=== PATIENT | female | born 1990 | race Two or more races ===

== ENCOUNTER 2017-01-28 18:30 | Emergency (ER) | payer MEDICAID ==
[~2017-01-28 18:30] MED LIST: PREN1CAP7 PO
--- NOTE | 2017-01-28 19:02 | PD ---
HPI Date Seen: Jan 28, 2017 Time Seen: 18:59 (Payton Patterson MD R2) Travel History International Travel<30 Days: No (Did not ask) Contact w/Intl Traveler<30Days: No (Did not ask) (Payton Patterson MD R2) History of Present Illness HPI History done through online certified japanese interpreter Patient is a 26-year-old female AB 1 at 38/5 who presented today for vaginal bleeding. has been complicated by gestations diabetes that is diet controlled. Patient first noticed a pink discharge today. Discharge initially started out as white yesterday and then became pink today. Did not soak through her underwear. Denies recent sexual activity. She does provide picture which shows a more brown discharge. Denies pruritus, hematuria, dysuria. Endorses movement. Denies contractions but does endorse periodic cramps that come and go. (Payton Patterson MD R2) History Past Medical History Medical History: Denies Significant Hx (Payton Patterson MD R2) Obstetric History Obstetric History 3 vaginal deliveries. History of hemorrhage (Payton Patterson MD R2) Past Surgical History Surgical History: No Previous Surgery (Payton Patterson MD R2) Family History Family History: Negative (Payton Patterson MD R2) Social History Alcohol Use: No Tobacco Use: No Substance Abuse: No (Payton Patterson MD R2) Allergies-Medications (Allergen,Severity, Reaction): Coded Allergies: No Known Allergies (Unverified , 01/20/17) Home Meds Active Scripts W/O Vit A W/ Fe Fumar (Citranatal [place])27-1-260 Mg Cap1 Cap PO DAILY #90 CAP Ref 0 Prov:Ravindra Drake MD R1 01/13/17 Review of Systems Except as stated in HPI: all other systems reviewed are Neg (Payton Patterson MD R2) Physical Exam Narrative GENERAL: Well-nourished, well-developed patient. SKIN: Warm and dry. HEAD: Normocephalic and atraumatic. EYES: No scleral icterus. No injection or drainage. ENT: No nasal drainage noted. Mucous membranes pink. Airway patent. CARDIOVASCULAR: Regular rate and rhythm without murmurs, gallops, or rubs. RESPIRATORY: Breath sounds equal bilaterally. No accessory muscle use. ABDOMEN/GI: Abdomen soft, non-tender, no rebound, no guarding Gravid to 38 weeks size GENITOURINARY: External Genitalia: intact and normal in appearance. White curd like discharge without evidence of bleeding. No lesion/lacerations seen. Cervix: posterior Dilatation: 0-1 Effacement: 20 Station: -3 Membranes: intact, amnisure negative Uterine Contractions: intermittent FHT's: Category: 1 Baseline: 130 Reactive: accels present Variability: moderate Decels: none EXTREMITIES: No cyanosis. 2+ pitting edema bilaterally NEUROLOGICAL: Awake and alert. Motor and sensory grossly within normal limits. Normal speech. (Payton Patterson MD R2) MDM Medical Record Reviewed: Yes Interpretation(s) 26yo female [id number] at 38.5 Presented for vaginal bleeding. 1. IUP * Category 1 tracing reassuring * Amnisure negative * Speculum and pelvic exam negative for blood. Cervix is closed thick and high. * Etiology of vaginal bleeding may be due to superficial lesion as patient is otherwise asymptomatic and denies any recent sexual activity * US 12/25/16: cephalic presentation. Anterior placenta. Amniotic fluid WNL. Mild pyelocaliectasis within the right kidney. abdominal US recommended. * Not in active labor 2. GBS status unknown * Per discussion with PCP, I believe GBS has been drawn. Discharge home in stable condition. Keep follow up appt with Dr. Drake on dw Dr. Villar (Payton Patterson MD R2) Narrative Course / MDM Patient was seen with the resident at the bedside. Agree with evaluation and plan. Labor precatuions. [facility] daily. FHR reviewed. (Alejandra Villar MD) Diagnosis Diagnosis: Primary Impression: Third trimester Disposition: DISCHARGE HOME Condition: Stable Payton Patterson MD R2 Jan 28, 2017 19:02 Alejandra Villar MD Jan 30, 2017 10:33
== END 2017-01-28 21:06 | disposition home or self-care (01) ==
LOC: HOBED 18:30
DX: O46.93 Antepartum hemorrhage, unspecified, third trimester (principal); O24.410 Gestational diabetes mellitus in pregnancy, diet controlled; Z3A.38 38 weeks gestation of pregnancy
CPT/HCPCS: 59025; 82948; 84112

== ENCOUNTER 2017-01-30 23:09 | Inpatient (IN) | payer MEDICAID ==
[~2017-01-30] VITALS: Ht 160 cm; Wt 105.2 kg
[2017-01-31] VITALS (19 sets, daily range): BP systolic 128–152; BP diastolic 72–90; PULSE 48–82; RESP 16–22; TEMP 99.1
[2017-01-31] MEDS ORDERED: LACTATED RINGER'S 1000 ML INJ 1,000 ML IV PRN (00:19)
[2017-01-31] MEDS ORDERED: LACTATED RINGER'S 1000 ML INJ 1,000 ML IV SCH (00:19)
--- NOTE | 2017-01-31 00:20 | PD ---
HPI Chief Complaint Pain, contractions Date Seen: Jan 31, 2017 Time Seen: 23:45 Travel History International Travel<30 Days: No Contact w/Intl Traveler<30Days: No Known Affected Area: No History of Present Illness HPI Patient is a 26-year-old G5. 3 at 39 weeks and 0 days who presents with abdominal pain consistent with contractions and back pain. She says this pain started today at 8 AM. She had a little bit of pink fluid vaginal discharge, but denied any significant leakage of fluids, vaginal bleeding. Patient endorses movement. She reports that at first her contractions were every 5 -8 minutes, and then more recently became as frequent as every 3-5 minutes. Patient reports that her back pain is constant, she describes it as an 8-9 out of 10. Patient has a history of gestational diabetes with this , which is diet controlled without medication. Para: 3 : 5 History Past Medical History Narrative Medical Patient reports a history of gestational diabetes with this , but not prior to this . Patient reports that she is diet controlled and not on any medication. Obstetric History Obstetric History Patient reports 3 full term deliveries without complications. Past Surgical History Narrative Surgical Patient denies any previous surgeries Surgical History: No Previous Surgery Family History Family History: Negative Social History Tobacco Use: No Allergies-Medications (Allergen,Severity, Reaction): Coded Allergies: No Known Allergies (Unverified , 01/31/17) Home Meds Active Scripts W/O Vit A W/ Fe Fumar (Citranatal [place])27-1-260 Mg Cap1 Cap PO DAILY #90 CAP Ref 0 Prov:Ravindra Drake MD R1 01/13/17 Physical Exam Narrative GENERAL: Well-nourished, well-developed patient. SKIN: Warm and dry. HEAD: Normocephalic and atraumatic. EYES: No scleral icterus. No injection or drainage. ENT: No nasal drainage noted. Mucous membranes pink. Airway patent. NECK: Supple, trachea midline. No JVD. CARDIOVASCULAR: Regular rate and rhythm without murmurs, gallops, or rubs. RESPIRATORY: Breath sounds equal bilaterally. No accessory muscle use. BREASTS: Bilateral exam showed no masses , no retractions, no nipple discharge. ABDOMEN/GI: Abdomen soft, non-tender, bowel sounds present, no rebound, no guarding Gravid to 39 weeks size Fundal Height: 39 GENITOURINARY: External Genitalia: intact and normal in appearance Dilatation: 3-4 cm Effacement: 50% Station: -2 Presentation: Vertex Membranes: Intact Uterine Contractions: Every 2-3 minutes FHT's: Category: Category 1 Baseline: 135 bpm Reactive: Reactive Variability: Moderate variability Decels: No decelerations noted EXTREMITIES: No cyanosis or edema. BACK: Nontender without obvious deformity. No CVA tenderness. NEUROLOGICAL: Awake and alert. Motor and sensory grossly within normal limits. Five out of 5 muscle strength in all muscle groups. Normal speech. Data Data Vital Signs Reviewed: Yes Orders Vital Signs (Adult) .ON ADMISSION (01/30/17 23:55) ^ Labor Status (01/30/17 23:55) Urinalysis - C+S If Indicated (01/30/17 23:55) ^ Non Stress Test (01/30/17 23:55) ^ Hydration (01/30/17 23:55) Pamg-1 Test .ONCE (01/30/17 23:55) [facility] Medical Record Reviewed: Yes Plan Patient is a 26-year-old at 39 weeks and 0 days gestation who presents with abdominal pain and contractions since today at 8 AM that seemed to becoming increasingly frequent. 1) rule out labor Monitor vital signs Encourage hydration Monitor heart rate (With Nonstress test Monitor contractions with tocometry Serial vaginal/cervical exams UA 2) back pain Treat pain as tolerated 3) gestational diabetes; patient is diet controlled and not on any medication Continue to monitor Philip Heard MD R1 Jan 31, 2017 00:20
[2017-01-31] MEDS ORDERED: MINERAL OIL 10 ML VIAL TOPICAL PRN (00:30)
[2017-01-31] MEDS ORDERED: OXYTOCIN 30 UNITS-500ML PREMIX 500 ML IV ONE (00:30)
[2017-01-31] MEDS ORDERED: SODIUM CHLORID 0.9% 500 ML INJ 500 ML IV PRN (00:30)
[2017-01-31] MEDS ORDERED: LIDOCAINE HCL 1% 50 ML VIAL I-DERMAL PRN (00:30)
[2017-01-31] MEDS ORDERED: ONDANSETRON HCL 4 MG/2 ML VIAL IV PRN (00:30)
[2017-01-31] MEDS ORDERED: CITRIC ACID-SODIUM CITRATE LIQ 30 ML UDC PO SCH (00:30)
[2017-01-31] MEDS ORDERED: LIDOCAINE HCL 1% 50 ML VIAL INFIL PRN (00:30)
[2017-01-31] MEDS ORDERED: SODIUM CHLOR 0.9% 1000 ML INJ 1,000 ML IV PRN (00:39)
[2017-01-31 00:57] LABS: AUTOMATED NEUTROPHIL # 5.5 TH/MM3 (1.8-7.7); BASOPHIL % 0.3 % (0.0-2.0); EOSINOPHIL # 0.1 TH/MM3 (0-0.4); HEMATOCRIT 38.3 % (35.0-46.0); HEMO FLAGS DIFF FINAL; LYMPH % 37.7 % (9.0-44.0); LYMPHOCYTE # 3.7 TH/MM3 (1.0-4.8); MEAN CELL VOLUME 78.3 FL (80.0-100.0); MEAN CORPUSCULAR HEMOGLOBIN 26.4 PG (27.0-34.0); MEAN CORPUSCULAR HGB CONC 33.8 % (32.0-36.0); MONO % 4.6 % (0.0-8.0); NEUT % 56.4 % (16.0-70.0); PLATELET COUNT 149 TH/MM3 (150-450); RED BLOOD COUNT 4.89 MIL/MM3 (4.00-5.30); RED CELL DISTRIBUTION WIDTH 15.4 % (11.6-17.2); WHITE BLOOD COUNT 9.7 TH/MM3 (4.0-11.0)
[2017-01-31] MEDS ORDERED: MISOPROSTOL 200 MCG TAB ONE (01:04)
[2017-01-31 01:10] LABS: BACTERIA, URINE RARE /hpf; BLOOD, URINE NEG (NEG); GLUCOSE,URINE NEG (NEG); KETONE, URINE NEG (NEG); MUCUS URINE FEW /lpf (OCC); NITRITE,URINE NEG (NEG); PH, URINE 5.5 (5.0-8.5); RENAL EPITHELIAL CELLS <1 /hpf; SQUAMOUS EPITHELIAL CELL URINE 1 /hpf (0-5); URINE COLOR LIGHT-YELLOW (YELLW/STRAW)
[2017-01-31 01:12] LABS: COMMENT (UR) CULT NOT INDICATED; CULTURE IF INDICATED CULT NOT INDICATED
--- NOTE | 2017-01-31 01:13 | PD.LABORPN ---
Subjective Subjective [facility] Attending Note 26y/o DM presented in active labor and progressed rapidly during evaluation with SROM in [place]. She is an A1DM without recent US assessment. She has a h/o large neonates, denies h/o shoulder dystocia. She was emphatic in her desire for a . We discussed via physician software sales the risks of shoulder dystocia including but not limited to permanent and irreversible neurological injury and/or brain damage. We discussed that the only way to prevent these risks is to perform a delivery at this time. We discussed there is an increased risk due to the suspected large size and her diabetes, which she did not have in any of the prior pregnancies. The patient expressed understanding of the risks including permanent and irreversible neurologic injury but declines a delivery and wants to proceed with a vaginal delivery, despite the risks above. Alejandra Villar MD Jan 31, 2017 01:13 Dilatation: [-] Effacement: [-] Station: [-] Presentation: [-] Membranes: [intact or ruptured] Uterine Contractions: [-] FHT's: Category: [-] Baseline: [-] Reactive: [-] Variability: [-] Decels: [-] Alejandra Villar MD Jan 31, 2017 01:13
--- NOTE | 2017-01-31 01:30 | HHI.HP ---
History & Physical H&P HPI HPI Chief Complaint Pain, contractions Date Seen: Jan 31, 2017 Time Seen: 23:45 Travel History International Travel<30 Days: No Contact w/Intl Traveler<30Days: No Known Affected Area: No History of Present Illness HPI Patient is a 26-year-old G5. 3 at 39 weeks and 0 days who presents with abdominal pain consistent with contractions and back pain. She says this pain started today at 8 AM. She had a little bit of pink fluid vaginal discharge, but denied any significant leakage of fluids, vaginal bleeding. Patient endorses movement. She reports that at first her contractions were every 5 -8 minutes, and then more recently became as frequent as every 3-5 minutes. Patient reports that her back pain is constant, she describes it as an 8-9 out of 10. Patient has a history of gestational diabetes with this , which is diet controlled without medication. Para: 3 : 5 Update: Pt with SROM and cervical dilation to 7cm within an hour of last exam. History (Limited) History Past Medical History Narrative Medical Patient reports a history of gestational diabetes with this , but not prior to this . Patient reports that she is diet controlled and not on any medication. Obstetric History Obstetric History Patient reports 3 full term deliveries without complications. Past Surgical History Narrative Surgical Patient denies any previous surgeries Surgical History: No Previous Surgery Family History Family History: Negative Social History Tobacco Use: No Allergies-Medications Allergies-Medications (Allergen,Severity, Reaction): Coded Allergies: No Known Allergies (Unverified , 01/31/17) Home Meds Active Scripts W/O Vit A W/ Fe Fumar (Citranatal [place])27-1-260 Mg Cap1 Cap PO DAILY #90 CAP Ref 0 Prov:Ravindra Drake MD R1 01/13/17 ROS Review of Systems Physical Exam Physical Exam Narrative GENERAL: Well-nourished, well-developed patient. SKIN: Warm and dry. HEAD: Normocephalic and atraumatic. EYES: No scleral icterus. No injection or drainage. ENT: No nasal drainage noted. Mucous membranes pink. Airway patent. NECK: Supple, trachea midline. No JVD. CARDIOVASCULAR: Regular rate and rhythm without murmurs, gallops, or rubs. RESPIRATORY: Breath sounds equal bilaterally. No accessory muscle use. BREASTS: Bilateral exam showed no masses , no retractions, no nipple discharge. ABDOMEN/GI: Abdomen soft, non-tender, bowel sounds present, no rebound, no guarding Gravid to 39 weeks size Fundal Height: 39 GENITOURINARY: (per nurse report) External Genitalia: intact and normal in appearance Dilatation: 7 cm Effacement: 50% Station: -2 Presentation: Vertex Membranes: Intact Uterine Contractions: Every 2-3 minutes FHT's: Category: Category 1 Baseline: 135 bpm Reactive: Reactive Variability: Moderate variability Decels: No decelerations noted EXTREMITIES: No cyanosis or edema. BACK: Nontender without obvious deformity. No CVA tenderness. NEUROLOGICAL: Awake and alert. Motor and sensory grossly within normal limits. Five out of 5 muscle strength in all muscle groups. Normal speech. Data Data Data Vital Signs Reviewed: Yes Orders Vital Signs (Adult) .ON ADMISSION (01/30/17 23:55) ^ Labor Status (01/30/17 23:55) Urinalysis - C+S If Indicated (01/30/17 23:55) ^ Non Stress Test (01/30/17 23:55) ^ Hydration (01/30/17 23:55) Pamg-1 Test .ONCE (01/30/17 23:55) MDM MDM Medical Record Reviewed: Yes Plan Patient is a 26-year-old at 39 weeks and 0 days gestation who presents with abdominal pain and contractions since today at 8 AM that seemed to becoming increasingly frequent. 1) pt in active labor Monitor vital signs Monitor heart rate with Nonstress test Monitor contractions with tocometry Serial vaginal/cervical exams UA --pt declines epidural and . Risks of shoulder dystocia and permanent/ irreversible neurological damage were discussed with patient because of likely LGA baby. Pt voiced understanding of the risks and wished to continue with vaginal delivery. --Fentanyl for pain --IVF with LR --NPO 2) back pain Treat pain with fentanyl as tolerated 3) gestational diabetes; patient is diet controlled and not on any medication Continue to monitor blood glucose 4) GBS unknown --no need for abx at this time given her 39 weeks gestational age and lack of risk factors. --continue to monitor for clinical signs and/or symptoms of infection Pt seen and discussed with Dr. Mcleod, Philip Lozano MD R1 Jan 31, 2017 01:30
[2017-01-31] MEDS ORDERED: METHYLERGONOVINE MALEATE 0.2 MG/ML VIAL ONE ×2 (01:43→02:21)
[2017-01-31] MEDS ORDERED: SODIUM CHLORIDE 0.9% FLUSH 10 ML FLUSH IV FLUSH PRN (02:00)
[2017-01-31] MEDS ORDERED: BENZOCAINE 20% TOPICAL SPRAY 60 ML CAN TOPICAL PRN (02:00)
[2017-01-31] MEDS ORDERED: oxyCODONE/ACETAMINOPHEN 5 MG/325 MG TAB PO PRN (02:00)
[2017-01-31] MEDS ORDERED: ZOLPIDEM TARTRATE 5 MG TAB PO PRN (02:00)
[2017-01-31] MEDS ORDERED: ONDANSETRON ODT 4 MG TAB PO PRN (02:00)
[2017-01-31] MEDS ORDERED: ACETAMINOPHEN 325 MG TAB PO PRN (02:00)
[2017-01-31] MEDS ORDERED: SODIUM CHLORIDE 0.9% FLUSH 10 ML FLUSH IV FLUSH SCH (02:00)
[2017-01-31] MEDS ORDERED: ALUMINUM/MAGNESIUM/SIMETH 30 ML CUP PO PRN (02:00)
[2017-01-31] MEDS ORDERED: WITCH HAZEL 50%/GLYCERIN 12.5% 40 PAD JAR TOPICAL PRN (02:00)
[2017-01-31] MEDS: oxyCODONE/ACETAMINOPHEN 5 MG/325 MG TAB PO PRN ×5 (02:07→21:05)
[2017-01-31] MEDS: IBUPROFEN 600 MG TAB PO PRN ×4 (02:07→21:05)
--- NOTE | 2017-01-31 02:07 | PD.OB.DELI ---
Delivery Date: Jan 31, 2017 Anesthesia: None Episiotomy: None Vaginal Delivery: Normal Presentation: Occiput anterior Nuchal Cord: None Delayed cord clamping (45 sec): Yes : Female One Minute : 7 Five Minute : 8 Ten Minute : 9 Weight: 4565 g Infant Care: Suctioned, Spontaneous crying (vigorous infant on delivery), Responded to stimulation Placenta: Spontaneous delivery Laceration: No lacerations Additional Information Delivered by Dr. Drake Supervised by Dr. Villar and Ravindra Clemons MD R1 Jan 31, 2017 02:07
--- NOTE | 2017-01-31 02:33 | PD.LABORPN ---
Subjective Subjective Attending Delivery Note Patient rapidly progressed to C/C/+1 and commenced spontaneous maternal expulsive efforts with rapid descent. The head delivered spontaneously and atraumatically with spontaneous and atraumatic delivery of the anterior shoulder. The remainder of the delivered spontaneously and the was crying and vigorous at delivery and noted to be crying vigorously shortly after delivery. The was moving all extremities well. The cord was double clamped and cut; the was taken to the warmer. The placenta was removed spontaneously and noted to be intact, no lacerations were noted. No or maternal injuries were noted. I performed the primary and all zepeda portions of the delivery. Objective Vital Signs Vital Signs Date Time Temp Pulse Resp B/P Pulse Ox O2 Delivery O2 Flow Rate FiO2 01/31/17 02:13 18 01/31/17 02:01 56 144/85 01/31/17 01:56 62 16 142/82 01/31/17 01:50 18 01/31/17 01:09 18 01/31/17 01:02 82 128/82 Alejandra Villar MD Jan 31, 2017 02:33
[2017-01-31] MEDS ORDERED: MEASLES, MUMPS, RUBELLA VACCINE 0.5 ML VIAL SQ ONE (16:00)
[2017-01-31] MEDS ORDERED: DIPHTH/TETANUS/ACEL PERTUSSIS (BOOSTER) 0.5 ML VIAL/PFS IM ONE (16:00)
--- NOTE | 2017-01-31 17:45 | HHI.OB ---
Subjective Post Day: 0 Remarks 26 year old female s/p NVD at 39/1 wks gestation, PPD 1. AFVSS. Patient reports she is feeling well. Bleeding is decreasing and pain is well- controlled. She is breast + formula feeding and bonding well with baby. Ambulating without difficulties. She is tolerating a diet without nausea or vomiting. She has not had a bowel movement. She has passed gas. Denies chest pain, dysuria, shortness of breath, or calf pain. (Ravindra Drake MD R1) Objective Vitals/I&O Vital Signs Date Time Temp Pulse Resp B/P Pulse Ox O2 Delivery O2 Flow Rate FiO2 01/31/17 04:30 99.1 52 22 130/74 01/31/17 04:01 49 142/81 01/31/17 04:00 18 01/31/17 03:46 52 150/81 01/31/17 03:30 18 01/31/17 03:17 48 150/74 01/31/17 03:15 53 01/31/17 03:15 18 01/31/17 03:11 18 01/31/17 03:11 18 01/31/17 03:01 51 152/72 01/31/17 03:00 18 01/31/17 02:45 18 01/31/17 02:45 57 151/90 01/31/17 02:31 58 138/83 01/31/17 02:30 18 01/31/17 02:16 55 142/73 01/31/17 02:13 18 01/31/17 02:01 56 144/85 01/31/17 01:56 62 16 142/82 01/31/17 01:50 18 01/31/17 01:09 18 01/31/17 01:02 82 128/82 Objective Remarks GENERAL: Well-nourished, well-developed patient. CARDIOVASCULAR: Regular rate and rhythm without murmurs, gallops, or rubs. RESPIRATORY: Breath sounds equal bilaterally. No accessory muscle use. ABDOMEN/GI: Abdomen soft, non-tender. Fundus: Firm, mildly tender at umbilicus GENITOURINARY: Light to moderate bleeding. EXTREMITIES: No cyanosis or edema, non-tender, without signs of DVT. Medications and IVs Current Medications Medications (Trade) Dose Ordered Sig/Serena Route Start Time Stop Time Status Last Admin Lactated Ringer's 1,000 ml @ 3,000 mls/hr Q20M PRN IV 01/31/17 00:19 Sodium Chloride 500 ml @ 1,000 mls/hr ONCE PRN IV 01/31/17 00:30 02/01/17 00:29 (NS 1000 ml Inj) 1,000 ml @ 100 mls/hr Q10H PRN IV 01/31/17 00:39 (Zofran Inj) 4 mg Q6H PRN IV 01/31/17 00:30 (NS Flush) 2 ml BID IV FLUSH 01/31/17 02:00 (NS Flush) 2 ml UNSCH PRN IV FLUSH 01/31/17 02:00 (Tylenol) 650 mg Q4H PRN PO 01/31/17 02:00 (Motrin) 600 mg Q6H PRN PO 01/31/17 02:00 01/31/17 14:52 (Percocet 5-325 Mg) 1 tab Q4H PRN PO 01/31/17 02:00 01/31/17 14:53 (Percocet 5-325 Mg) 2 tab Q4H PRN PO 01/31/17 02:00 (Americaine 20% Top Spr) 1 spray Q4H PRN TOPICAL 01/31/17 02:00 (Tucks Pads) 1 applic QID PRN TOPICAL 01/31/17 02:00 (Yamilet-Colace) 2 tab Q12H PRN PO 01/31/17 02:00 (Ambien) 5 mg HS PRN PO 01/31/17 02:00 (Mag-Al Plus Susp Liq) 15 ml Q8H PRN PO 01/31/17 02:00 (Zofran Odt) 4 mg Q6H PRN PO 01/31/17 02:00 (Ravindra Drake MD R1) Assessment/Plan Problem List: (1) Normal vaginal delivery (2) GDM (gestational diabetes mellitus) Assessment and Plan 26 yo female s/p NVD PPD 0. - AFVSS - Continue routine care - Motrin PRN pain - Encourage OOB - Pelvic rest x 6 wks - Contraception: undecided at this time, wdw PCP Dr. Drake - Anticipate D/C 02/02 wdw OB Hospitalist Discharge Planning Home 02/01-02/02 (Ravindra Drake MD R1) Attending Attestation Agree with resident assessment. Follow Bps. (Elsa Amezcua MD) Ravindra Drake MD R1 Jan 31, 2017 17:45 Elsa Amezcua MD Feb 01, 2017 09:28
[2017-01-31] MEDS: DOCUSATE SODIUM 50 MG/SENNA 8.6 MG TAB PO PRN (20:58)
[2017-02-01] MEDS: IBUPROFEN 600 MG TAB PO PRN ×3 (06:10→17:57)
[2017-02-01] MEDS: oxyCODONE/ACETAMINOPHEN 5 MG/325 MG TAB PO PRN ×3 (06:10→17:57)
[2017-02-01 07:45] VITALS: BP 119/73; PULSE 57; RESP 16; TEMP 98.3
--- NOTE | 2017-02-01 08:25 | HHI.OB ---
Subjective Post Day: 1 Remarks 26 year old female s/p NVD at 39/1 wks gestation, PPD 1. Some elevated BPs overnight, most recent two wnl. Patient reports she is feeling well. Bleeding is decreasing and pain is well-controlled. She is breast + formula feeding and bonding well with baby. Ambulating without difficulties. She is tolerating a diet without nausea or vomiting. She has not had a bowel movement. She has passed gas. Denies chest pain, dysuria, shortness of breath, or calf pain. ( Ravindra Drake MD R1) Objective Objective Remarks GENERAL: Well-nourished, well-developed patient lying in bed in NAD. CARDIOVASCULAR: Regular rate and rhythm without murmurs, gallops, or rubs. RESPIRATORY: Breath sounds equal bilaterally. No accessory muscle use. ABDOMEN/GI: Abdomen soft, non-tender. Fundus: Firm, mildly tender at umbilicus GENITOURINARY: Light to moderate bleeding. EXTREMITIES: No cyanosis or edema, non-tender, without signs of DVT. Medications and IVs Current Medications Medications (Trade) Dose Ordered Sig/Serena Route Start Time Stop Time Status Last Admin Lactated Ringer's 1,000 ml @ 3,000 mls/hr Q20M PRN IV 01/31/17 00:19 (NS 1000 ml Inj) 1,000 ml @ 100 mls/hr Q10H PRN IV 01/31/17 00:39 (Zofran Inj) 4 mg Q6H PRN IV 01/31/17 00:30 (NS Flush) 2 ml BID IV FLUSH 01/31/17 02:00 (NS Flush) 2 ml UNSCH PRN IV FLUSH 01/31/17 02:00 (Tylenol) 650 mg Q4H PRN PO 01/31/17 02:00 (Motrin) 600 mg Q6H PRN PO 01/31/17 02:00 02/01/17 06:10 (Percocet 5-325 Mg) 1 tab Q4H PRN PO 01/31/17 02:00 02/01/17 06:10 (Percocet 5-325 Mg) 2 tab Q4H PRN PO 01/31/17 02:00 (Americaine 20% Top Spr) 1 spray Q4H PRN TOPICAL 01/31/17 02:00 (Tucks Pads) 1 applic QID PRN TOPICAL 01/31/17 02:00 (Yamilet-Colace) 2 tab Q12H PRN PO 01/31/17 02:00 01/31/17 20:58 (Ambien) 5 mg HS PRN PO 01/31/17 02:00 (Mag-Al Plus Susp Liq) 15 ml Q8H PRN PO 01/31/17 02:00 (Zofran Odt) 4 mg Q6H PRN PO 01/31/17 02:00 (Ravindra Drake MD R1) Assessment/Plan Problem List: (1) Normal vaginal delivery (2) GDM (gestational diabetes mellitus) Assessment and Plan 26 yo female s/p NVD PPD 1. - Keep eye on BP, slightly elevated intrapartum and after delivery, normal now, no signs/Sx of pre-eclampsia - Continue routine care - Motrin and Percocet PRN pain - Encourage OOB - Pelvic rest x 6 wks - Contraception: undecided at this time, wdw PCP Dr. Drake - Anticipate D/C 02/02 wdw OB Hospitalist Discharge Planning Home 02/02 (Ravindra Drake MD R1) Attending Attestation Agree with resident note. continue to monitor Bps as labile. d/c home tomorrow. (Elsa Amezcua MD) Ravindra Drake MD R1 Feb 01, 2017 08:24 Elsa Amezcua MD Feb 01, 2017 09:29
[2017-02-01] MEDS: DOCUSATE SODIUM 50 MG/SENNA 8.6 MG TAB PO PRN (12:15)
[2017-02-01 21:30] VITALS: BP 110/71; PULSE 63; RESP 18; TEMP 97.5
[2017-02-02] MEDS ORDERED: IBUP-232 PO (07:07)
[2017-02-02] MEDS ORDERED: OXYC1TAB63 PO (07:07)
--- NOTE | 2017-02-02 07:08 | HHI.DCPOC ---
Discharge Care Plan Diagnosis: (1) Normal vaginal delivery (2) GDM (gestational diabetes mellitus) Report Symptoms to Your Doctor -Temperate above 100.5 degrees -Redness, of incision or excessive or foul smelling drainage -Unusual pain or calf pain -Increased vaginal bleeding -Painful or difficulty urinating -Feelings of extreme sadness or anxiety after 2 weeks Goals to Promote Your Health * To prevent worsening of your condition and complications * To maintain your health at the optimal level Directions to Meet Your Goals Take your medications as prescribed Follow your dietary instruction Follow activity as directed Ensure plenty of rest for recovery Drink fluids for hydration Keep your appointments as scheduled Take your immunizations and boosters as scheduled If your symptoms worsen call your PCP, if no PCP go to Urgent Care Center or Emergency Room Smoking is Dangerous to Your Health. Avoid second hand smoke Call the 24-hour crisis hotline for domestic abuse at Ravindra Drake MD R1 Feb 02, 2017 07:08
[2017-02-02] MEDS: oxyCODONE/ACETAMINOPHEN 5 MG/325 MG TAB PO PRN (07:32)
[2017-02-02] MEDS: IBUPROFEN 600 MG TAB PO PRN (07:33)
[2017-02-02 08:00] VITALS: BP 108/72; PULSE 72; RESP 18; TEMP 98.2
[2017-02-02] MEDS ORDERED: SENN8.6T81 PO (08:14)
--- NOTE | 2017-02-02 08:31 | HHI.OB ---
Subjective Post Day: 2 Remarks 26 year old female s/p NVD at 39/1 wks gestation, PPD 2. AFVSS. Patient reports she is feeling well. Bleeding is decreasing and pain is well- controlled. She is formula feeding and bonding well with baby. Ambulating without difficulties. She is tolerating a diet without nausea or vomiting. She has not had a bowel movement. She has passed gas. Denies chest pain, dysuria, shortness of breath, or calf pain. (Ravindra Drake MD R1) Objective Vitals/I&O Vital Signs Date Time Temp Pulse Resp B/P Pulse Ox O2 Delivery O2 Flow Rate FiO2 02/02/17 08:00 98.2 72 18 02/02/17 08:00 108/72 02/01/17 21:30 63 18 110/71 02/01/17 21:30 97.5 Objective Remarks GENERAL: Well-nourished, well-developed patient lying in bed in NAD. CARDIOVASCULAR: Regular rate and rhythm without murmurs, gallops, or rubs. RESPIRATORY: Breath sounds equal bilaterally. No accessory muscle use. ABDOMEN/GI: Abdomen soft, non-tender. Fundus: Firm, minimally tender at umbilicus GENITOURINARY: Light to moderate bleeding. EXTREMITIES: No cyanosis or edema, non-tender, without signs of DVT. Medications and IVs Current Medications Medications (Trade) Dose Ordered Sig/Serena Route Start Time Stop Time Status Last Admin Lactated Ringer's 1,000 ml @ 3,000 mls/hr Q20M PRN IV 01/31/17 00:19 (NS 1000 ml Inj) 1,000 ml @ 100 mls/hr Q10H PRN IV 01/31/17 00:39 (Zofran Inj) 4 mg Q6H PRN IV 01/31/17 00:30 (NS Flush) 2 ml BID IV FLUSH 01/31/17 02:00 (NS Flush) 2 ml UNSCH PRN IV FLUSH 01/31/17 02:00 (Tylenol) 650 mg Q4H PRN PO 01/31/17 02:00 (Motrin) 600 mg Q6H PRN PO 01/31/17 02:00 02/02/17 07:33 (Percocet 5-325 Mg) 1 tab Q4H PRN PO 01/31/17 02:00 02/02/17 07:32 (Percocet 5-325 Mg) 2 tab Q4H PRN PO 01/31/17 02:00 (Americaine 20% Top Spr) 1 spray Q4H PRN TOPICAL 01/31/17 02:00 (Tucks Pads) 1 applic QID PRN TOPICAL 01/31/17 02:00 (Yamilet-Colace) 2 tab Q12H PRN PO 01/31/17 02:00 02/01/17 12:15 (Ambien) 5 mg HS PRN PO 01/31/17 02:00 (Mag-Al Plus Susp Liq) 15 ml Q8H PRN PO 01/31/17 02:00 (Zofran Odt) 4 mg Q6H PRN PO 01/31/17 02:00 (Ravindra Drake MD R1) Assessment/Plan Problem List: (1) Normal vaginal delivery (2) GDM (gestational diabetes mellitus) Assessment and Plan 26 yo female s/p NVD PPD 2. - BPs wnl today - D/C home today - Motrin and Percocet PRN pain - Encourage OOB - Pelvic rest x 6 wks - Contraception: desires Paraguard IUD, will obtain from [facility] PRN constipation dw OB Hospitalist Discharge Planning Home 02/02 (Ravindra Drake MD R1) Collaborating MD Comments Discharge plans are planned and patient will follow-up in the clinic for her 6 week exam (Demetrice Fuentes MD) Ravindra Drake MD R1 Feb 02, 2017 08:31 Demetrice Fuentes MD Feb 02, 2017 09:03
[2017-02-02 16:08] LABS: HEMOGLOBIN A1a 1.2 %; HEMOGLOBIN A1b 1.6 %; HEMOGLOBIN Ao 85.3 %; HEMOGLOBIN LA1C 1.7 %; HEMOGLOBIN P3 3.6 %
== END 2017-02-02 12:47 | disposition home or self-care (01) | DRG 775 ==
LOC: HOBED 23:09 → H2EA 01-31 00:17 → H1EA 01-31 04:14
PROVIDERS: ADMIT Obstetrics & Gynecology; ATTEND Obstetrics & Gynecology
PROC: 10E0XZZ Delivery of Products of Conception, External Approach (ICD-10-PCS; principal; 2017-01-31)
DX: O24.420 Gestational diabetes mellitus in childbirth, diet controlled (principal); O36.63X0 Maternal care for excessive fetal growth, third trimester, not applicable or unspecified; Z37.0 Single live birth; Z3A.39 39 weeks gestation of pregnancy
CPT/HCPCS: 59025; 81001; 83036; 84112; 85025; 86900; 86901; J2210; J2590; J3010; J7120

== ENCOUNTER 2018-01-18 19:51 | Emergency (ER) | payer MEDICAID ==
[~2018-01-18 19:51] MED LIST changes: +IBUP-232 PO; +OXYC1TAB63 PO; +SENN8.6T81 PO
[2018-01-18 20:09] VITALS: BP 154/67; PULSE 74; RESP 18; TEMP 98.6; O2SAT 99
--- NOTE | 2018-01-18 23:35 | PD ---
HPI Chief Complaint: Cold / Flu Symptoms Time Seen by Provider: 23:28 Travel History International Travel<30 days: No Contact w/Intl Traveler<30days: No Traveled to known affect area: No History of Present Illness HPI 27-year-old female presents to emergency department with a 9 day history of cough, congestion, green sputum, pleuritic chest wall pain, sore throat, and lower back pain with coughing. She denies any ear pain, nausea, vomiting, diarrhea, abdominal pain, dysuria or frequency. Her last menstrual cycle was 10 days ago. Denies . She does smoke but denies alcohol. PFS Past Medical History Medical History: Denies Significant Hx Tetanus Vaccination: < 5 Years ?: Not Past Surgical History Surgical History: No Previous Surgery Social History Alcohol Use: No Tobacco Use: Yes Substance Use: No Allergies-Medications (Allergen,Severity, Reaction): Coded Allergies: No Known Allergies (Unverified , 01/31/17) Reported Meds & Prescriptions Reported Meds & Active Scripts Active Sennosides 8.6 Mg Tab 1-2 Tab PO BID PRN Ibuprofen 600 Mg Tab 600 Mg PO Q6H PRN Oxycodone-Acetaminophen 5-325 mg Tab 1-2 Tab PO Q4H PRN Citranatal [place] ( W/O Vit A W/ Fe Fumar) 27-1-260 Mg Cap 1 Cap PO DAILY Review of Systems Except as stated in HPI: all other systems reviewed are Neg Physical Exam Narrative GENERAL: Well-developed, well-nourished in no acute distress. Nontoxic appearing. HEAD: Normocephalic, atraumatic. EYES: Pupils equal round and reactive. Extraocular motions intact. No scleral icterus. No injection or drainage. ENT: TMs clear without erythema. The external auditory canals clear. Nose: clear . Posterior pharynx is pink and moist. No tonsillar edema or exudate. Uvula midline. Airway patent. NECK: Trachea midline.Supple, nontender, moves head freely. No central bony tenderness or spasm. CARDIOVASCULAR: Regular rate and rhythm without murmurs, gallops, or rubs. RESPIRATORY: Clear to auscultation. Breath sounds equal bilaterally. No wheezes , rales, or rhonchi. GASTROINTESTINAL: Abdomen soft, non-tender, nondistended. No hepato-splenomegaly , or palpable masses. No guarding. EXTREMITIES: No clubbing, cyanosis, or edema. No joint tenderness, effusion, or edema noted. BACK: Nontender without deformity or crepitance. No flank tenderness. Data Data Last Documented VS Vital Signs Date Time Temp Pulse Resp B/P (MAP) Pulse Ox O2 Delivery O2 Flow Rate FiO2 01/18/18 20:09 98.6 74 18 154/67 (96) 99 MDM Medical Decision Making Medical Screen Exam Complete: Yes Emergency Medical Condition: Yes Medical Record Reviewed: Yes Differential Diagnosis MDM: High Differential diagnoses: Pneumonia, bronchitis, URI, asthma, RAD, legionnaire's disease, SARS, ARDS, influenza, bronchiolitis, RSV,PE,CHF Narrative Course This is bronchitis. Patient was given Zithromax and diclofenac for pain. Diagnosis Primary Impression: bronchitis Patient Instructions: General Instructions Additional Instructions: Rest. Increase fluids. Tylenol . Robitussin-DM. Zithromax and diclofenac. Followup with your Dr. in one week. Return to the ER for any problems. Med/Other Pt SpecificInfo: Prescription(s) given Disposition: 01 DISCHARGE HOME Condition: Stable Андрей Cotter Jan 18, 2018 23:35
[2018-01-18] MEDS ORDERED: DICL75TA PO (23:36)
[2018-01-18] MEDS ORDERED: ZITHTAB PO (23:36)
[2018-01-18] MEDS ORDERED: BENZONATATE 100 MG CAP PO ONE (23:45)
[2018-01-18] MEDS ORDERED: NAPROXEN 500 MG TAB PO ONE (23:45)
== END 2018-01-19 00:31 | disposition home or self-care (01) ==
LOC: NED 19:51 → NEPK 01-19 00:31
DX: J40 Bronchitis, not specified as acute or chronic (principal); Z72.0 Tobacco use; Z79.899 Other long term (current) drug therapy
CPT/HCPCS: 99283